=== PATIENT | female | born 1960 | race Caucasian/White ===

== ENCOUNTER → 2019-11-26 13:26 | Outpatient (CLI) | payer OTHER, SELFPAY ==
--- NOTE | ~2019-11-26 | CT_ITS ---
EXAMINATION: CT abdomen pelvis w con DATE: 11/26/2019 13:57 INDICATION: Generalized abdominal pain. TECHNIQUE: Computed tomography (CT) of the abdomen and pelvis was performed with 100 mL Omnipaque 350 intravenous contrast. Automated exposure control and iterative reconstruction technique were employe d. The dose-length product was 366.72 mGy-cm. COMPARISON: CT abdomen and pelvis 05/02/2012, abdomen MRI 03/28/2012 FINDINGS: The visualized portions of the lung bases demonstrate mild atelectasis. There is a 3 mm nod ule in left lower lobe, likely benign. No pleural effusion. The heart size is normal. No pericardial effusion. There is a 5.8 x 2.4 cm lobular mass at the posterior margin of the right hepatic lobe nicanor uring soft tissue attenuation without change in size and was nonenhancing on the prior MRI, consisten t with a proteinaceous/hemorrhagic cyst. There is a 5.0 x 4.0 cm mass at the lateral aspect of the le ft hepatic lobe measuring soft tissue attenuation without change in size that was nonenhancing on the prior MRI, consistent with a proteinaceous/hemorrhagic cyst. The gallbladder, spleen, pancreas, adre nal glands, and kidneys are normal. There is diverticulosis of the colon without evidence of divertic ulitis. There are no dilated loops of bowel. The appendix is normal. There is a supraumbilical ventra l hernia containing fat. There are no pathologically enlarged lymph nodes. There is trace pelvic asci dannielle. There is mild lumbar spondylosis. IMPRESSION: 1. Supraumbilical ventral hernia containing fat. Reviewed, dictated and finalized at location A.
[2019-11-26 13:47] LABS: Estimated Glomerular Filt Rate > 60
== END ==
PROVIDERS: PCP Family Medicine; Visit Provider Family Medicine
DX: R10.9 Unspecified abdominal pain (principal); K43.9 Ventral hernia without obstruction or gangrene
CPT/HCPCS: 36415; 74177; Q9967

== ENCOUNTER → 2020-03-05 15:18 | Outpatient (CLI) | payer OTHER, SELFPAY ==
--- NOTE | ~2020-03-05 | MM_ITS ---
EXAMINATION: MM screening [facility] BI w mary HISTORY: Screening TECHNIQUE: Craniocaudal and mediolateral oblique 3-D tomosynthesis images were obtained and synthetic 2-D images were generated. CAD analysis was submitted and interpreted. COMPARISON: Comparison to multiple prior studies sequentially, with oldest reviewed study dated Naeem rison to multiple prior studies sequentially, with oldest reviewed study dated 03/28/2013. . BREAST PARENCHYMAL COMPOSITION: There are scattered areas of fibroglandular density. FINDINGS: There is no evidence of suspicious mass, calcification, or architectural distortion to sugg est malignancy in either breast. There has been no suspicious interval change. IMPRESSION: 1. No mammographic evidence of malignancy. 2. Recommend routine screening mammography in one year. BI-RADS Category 1: Negative Reviewed, dictated and finalized at location A.
== END ==
PROVIDERS: PCP Family Medicine; Visit Provider Obstetrics & Gynecology
DX: Z12.31 Encounter for screening mammogram for malignant neoplasm of breast (principal)
CPT/HCPCS: 77063; 77067

== ENCOUNTER → 2021-04-09 11:14 | Outpatient (CLI) | payer OTHER, SELFPAY ==
--- NOTE | ~2021-04-09 | MM_ITS ---
EXAMINATION: MM screening [facility] BI w mary HISTORY: Screening mammogram TECHNIQUE: Craniocaudal and mediolateral oblique 3-D tomosynthesis images were obtained and synthetic 2-D images were generated. CAD analysis was submitted and interpreted. COMPARISON: 03/05/2020, 02/12/2019, 10/10/2017 BREAST PARENCHYMAL COMPOSITION: There are scattered areas of fibroglandular density. FINDINGS: A stable asymmetry is present in the middle third of the inner left breast on the craniocau phillip view. There is no evidence of suspicious mass, calcification, or architectural distortion to sugg est malignancy in either breast. There has been no suspicious interval change. IMPRESSION: 1. No mammographic evidence of malignancy. 2. Recommend routine screening mammography in one year. BI-RADS Category 2: Benign finding(s). Reviewed, dictated and finalized at location A. TEGIC COMMUNICATIONS SPECIALIST
== END ==
PROVIDERS: Visit Provider Obstetrics & Gynecology
DX: Z12.31 Encounter for screening mammogram for malignant neoplasm of breast (principal)
CPT/HCPCS: 77063; 77067

== ENCOUNTER 2021-06-03 00:13 | Day surgery (SDC) | payer BC, SELFPAY ==
--- NOTE | 2021-05-28 15:36 | PM.SD2 ---
Same Day Admit/Disch: HPI History of Present Illness Chief complaint: ventral hernia Narrative: Natacha Renteria is a 60 year old female Who has noticed a bulge just above her umbilicus for over a year. Initially it was asymptomatic but over time has started to become uncomfortable. It is worse with activity particularly working out. She had a CT scan of the abdomen and pelvis which I have reviewed. This shows a supraumbilical ventral hernia containing fat. She was seen in the office and is taken to surgery now for repair. [facility] Past Medical History Medical History Anxiety Surgical History Surgical History History of hemorrhoidectomy History of left knee surgery History of lumpectomy of left breast Family History Family History Other No pertinent family history Social History Social History (Updated 06/03/21 @ 09:15 by Roney Connolly MD) Years smoked: 1 Smoking status: Former smoker Tobacco type: cigarettes Alcohol intake: current Drinks per week: 3 Alcohol use details: socially Substance use: never Substance use type: does not use Living arrangements: alone Additional occupation/education comments: Eye Specialist Spiritual care concerns: No Same Day Admit/Disch: Med Pre-admit Medications Home Medications Medication Instructions Recorded Confirmed Type escitalopram oxalate 10 mg tablet 10 mg PO DAILY 03/31/21 06/03/21 History loratadine 10 mg tablet 10 mg PO DAILY 04/08/21 06/03/21 History omeprazole 20 mg tablet,delayed 20 mg PO DAILY 04/08/21 06/03/21 History release estradiol [Estrace] 1 applic VAGINAL 2XW 05/31/21 06/03/21 History multivitamin 1 tablet PO DAILY 05/31/21 06/03/21 History ketorolac 10 mg PO Q6H 4 Days #16 tablet 06/03/21 Rx oxycodone-acetaminophen 0.5 - 1 tablet PO Q6H PRN #5 tablet 06/03/21 Rx Exam Const: General: comfortable, no acute distress, alert and awake HENMT: Head: normocephalic and atraumatic Mouth: Yes Normal oral and palatal mucosa present Eyes: Conjunctivae: conjunctivae normal Pupils: Equal, round and reactive pupils present EOM: EOMs intact bilaterally Neck: Neck: normal visual inspection, no lymphadenopathy and nontender Resp: Effort & Inspection: normal respiratory effort Auscultation: clear to auscultation bilaterally Cardio: Rate: regular rate Rhythm: regular rhythm Heart sounds: no gallops, no murmurs and no rubs GI: Inspection: non-distended, no scars and visible herniation ( Slight skin elevation noted) GI Palp: Yes Soft to palpation, Yes Tenderness to palpation present (GI) ( at hernia), No Hepatomegaly present, No Splenomegaly present and Yes Hernia present ( primary ventral hernia 3 cm cephalad to the umbilicus) Auscultation: normal bowel sounds Skin: Lesions: no lesions Rashes: no rashes Neuro: General: no focal motor deficits and CN's II-XI intact bilaterally Cranial nerves: Yes Equal, round and reactive pupils present, Yes Bilaterally intact EOM present, Yes facial symmetry and Yes Midline tongue present Speech: normal speech Motor exam (neuro): 5/5 motor strength present throughout and Motor abnormalities not present Extrem: General: no clubbing, cyanosis or edema and edema Psych: Affect: normal affect Thought process: Normal thought process present Insight: Good insight present (Psych) DS: Summary Time Spent with Patient Time attestation: Total time spent providing and/or coordinating discharge services: DS: Admitting Diagnosis Discharge Date June 03, 2021 Admitting Diagnosis supraumbilical primary ventral hernia-plan to repair as an outpatient under local anesthesia with IV sedation. Mesh may be needed. Procedure risks and benefits have been explained. All questions were answered. DS: Discharge Diagnosis Discharge Diagnos
[2021-05-31 11:43] VITALS: BMI 24.7
--- NOTE | 2021-05-31 11:56 | PC.NURSE ---
Report to the Outpatient Waiting Room, entrance under the green pavilion located off [facility], at time 0830 on date 06/03/21. OR Time: 1030. - You will be asked a series of questions to screen for COVID 19 for your protection. - A mask is required within the hospital. - No visitors are allowed at this time. Preoperative COVID Testing Requirements: No COVID Test needed if: (proof is required; if not received patient will have Rapid Test prior to entry) - Patient has received COVID Vaccine at least 14 days prior to procedure date or - Patient has positive COVID test result within last 90 days of surgery date. COVID Test needed if above criteria is not met Patients may have clear liquids (water, carbonated beverages, clear teas, apple juice) until 3 hours prior to surgery with a maximum of 20 ounces. - No food from midnight until time of surgery Take the following medications with a SIP of water the morning of surgery: ESCITALOPRAM Medications to discontinue per physician: VITAMINS/SUPPLEMENTS Date to take last dose: TODAY Please no make-up, nail yi, hairspray, perfume, deodorant, or body powder the day of surgery. No jewelry (including any body piercings) or valuables the day of surgery, leave them at home. Please take a shower or bath the night before, or the morning of, surgery with an antibacterial soap. Wear comfortable, loose fitting clothing. HIBICLENS SHOWER - Jewelry must be removed prior to entering the operating room. Rings and piercings that are not removed may be cut off. - The hospital will not accept responsibility for valuables. - Please leave all valuables, including medications, at home the day of surgery. If you are going home after surgery, a licensed crude oil driver must drive you home. - NO public transportation without another adult. - We recommend that an adult stay with you for 24 hours following discharge. - We also recommend that you do not drive, make important decision, drink alcoholic beverages, or take any drugs that were not prescribed by your health care provider for at least 24 hours after your discharge time. Follow any additional instructions given to you from your surgeon. Telephone instructions given to ANNA VÁSQUEZ and asked if any additional questions and then verbalized understanding. Patient advised to call surgeon office or pre surgery nurse liaison [phone] if any additional questions.
[2021-06-03] MEDS: ACETAMINOPHEN 500 MG TABLET 1000 MG PO (08:51)
[2021-06-03] MEDS: LACTATED RINGERS 1,000 ML 30 ML IV CONT (09:09)
[2021-06-03] MEDS: KETOROLAC 15 MG/ML VIAL (*BKC) IV PUSH (09:10)
--- NOTE | 2021-06-03 09:14 | P.PNAN_ITS ---
Anes - Initial Pre Proc Eval Procedure: Operation Date: 06/03/21 10:30 Proposed Procedures p Repair of Periumbilical Ventral Hernia with Possible Mesh - Haris Gabriel MD Date/Time: 06/03/21 09:14 Surgeon: Haris Gabriel MD Pre Op Diagnosis: ventral hernia Patient Data Age: 60 Gender: F Height: 1.6 m Weight: 62.2 kg Allergies Allergy/AdvReac Type Severity Reaction Status Date / Time codeine AdvReac Mild Dizziness Verified 06/03/21 08:49 Home Medications Medication Instructions Recorded Confirmed Type escitalopram oxalate 10 mg tablet 10 mg PO DAILY 03/31/21 06/03/21 History loratadine 10 mg tablet 10 mg PO DAILY 04/08/21 06/03/21 History omeprazole 20 mg tablet,delayed 20 mg PO DAILY 04/08/21 06/03/21 History release estradiol [Estrace] 1 applic VAGINAL 2XW 05/31/21 06/03/21 History multivitamin 1 tablet PO DAILY 05/31/21 06/03/21 History Patient hx anesthesia problems: none Family hx anesthesia problems: none Results Review: All pre-operative results and documents have been reviewed as part of the pre-operative evaluation. 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 Informed Consent: The patient's anesthetic plan and its attendant risks and benefits were discussed with the patient/family/POA. Questions were solicited and answers provided to the satisfaction of the patient/family/POA.
[2021-06-03 09:15] VITALS: BP 127/66; PULSE 68; RESP 16; TEMP 36.8; O2SAT 98
--- NOTE | 2021-06-03 10:54 | WPDHPUPDATE1 ---
History and Physical Update Update Date/Time: 06/03/21 10:54 History and Physical has been reviewed, including an updated exam of the patient. There are NO changes in the patient's condition. Risks, benefits, and alternatives have been discussed and questions answered. Patient agrees to proceed with procedure.
[2021-06-03] MEDS: ceFAZolin 2 GM/D5W 50 ML 2 GM/50 ML BAG IVPB (11:01)
[2021-06-03] MEDS: BUPIVACAINE/EPINEPHRINE 0.5% 10 ML VIAL 24 ML INFILTRATE (11:35)
[2021-06-03 11:50] VITALS: BP 100/51; PULSE 60; RESP 12; O2SAT 99
--- NOTE | 2021-06-03 11:55 | W.PM.PROC2 ---
Procedure Note - Detailed Date of Procedure 06/03/21 Pre-op Diagnosis Primary ventral hernia Post-op Diagnosis same Procedure Performed Repair primary ventral hernia Surgeon Haris Gabriel MD Screener Perfumer Jordyn ESPINOZAA Anesthesia MAC and local (0.5% Marcaine with epinephrine) Indications Patient has a supraumbilical bulge which has been painful. By CT scan as well as exam, this is a supraumbilical primary ventral hernia. She is taken to surgery now for repair possibly with mesh. Findings Although a sizable amount of chronically herniated properitoneal fat was protruding through the defect, the defect itself was slit like and was 5 mm by 2 mm. It was closed primarily with suture. Description of Procedure Patient was checked in the preoperative holding area. The proposed incision was marked on the skin. She was then taken to surgery and IV sedation was administered. The abdomen is prepped and draped. Local anesthesia was infiltrated over the area of the anticipated incision and in the subcutaneous tissues. Incision was made dissection through the subcutaneous was carried out. The hernia sac was noted. It was dissected from the subcutaneous. It was good size, about the size of a ping-pong ball. It was dissected free circumferentially and then dissected down to its neck. Additional local was infiltrated into the neck of the hernia and in the fascia around the hernia defect. The herniated contents were then amputated at the neck of the hernia. This fatty tissue was discarded. I then further dissected the subcutaneous around the hernia defect until the defect itself was easily seen and well delineated. Its size was as noted above. The defect was closed with a cryava-vo-bxduy mattress suture of 0 Ethibond. Additional local was infiltrated into the fascia all around the hernia defect. We then closed the wound in layers. The deep layer of 3-0 Vicryl were placed. Subcuticular interrupted 4 0 Vicryl skin suture were then placed. The wound was closed finally with a running 4-0 Monocryl skin suture. The wound was dressed with Exofin surgical adhesive. Patient was awakened and taken to outpatient surgery in good condition. Sponge and needle counts were correct x2. Implants None Estimated Blood Loss -5 Drains No Packing No Pathology none sent Complications No immediate complications Condition stable Disposition same day
[2021-06-03 12:20] VITALS: BP 128/63; PULSE 79; RESP 16; O2SAT 100
[2021-06-03 12:50] VITALS: BP 125/70; PULSE 70; RESP 16; O2SAT 100
[2021-06-03] MEDS: oxyCODONE HCL (*CRX) 5 MG TAB IR PO (12:52)
== END 2021-06-03 13:20 | disposition home or self-care (01) ==
PROVIDERS: PCP Family Medicine; Visit Provider Surgery
PROC: (CPT 49560; principal; 2021-06-03 10:30)
DX: K43.9 Ventral hernia without obstruction or gangrene (principal); F41.9 Anxiety disorder, unspecified; Z87.891 Personal history of nicotine dependence
CPT/HCPCS: 49560; A9270; J0690; J1885; J2250; J2704; J3010; J7120

== ENCOUNTER → 2022-06-03 14:35 | Outpatient (CLI) | payer BC, SELFPAY ==
--- NOTE | ~2022-06-03 | MM_ITS ---
EXAMINATION: MM screening [facility] BI w mary HISTORY: Screening TECHNIQUE: Craniocaudal and mediolateral oblique 3-D tomosynthesis images were obtained and synthetic 2-D images were generated. CAD analysis was submitted and interpreted. COMPARISON: Comparison to multiple prior studies sequentially, with oldest reviewed study dated 06/2014. BREAST PARENCHYMAL COMPOSITION: There are scattered areas of fibroglandular density. FINDINGS: There is no evidence of suspicious mass, calcification, or architectural distortion to sugg est malignancy in either breast. There has been no suspicious interval change. IMPRESSION: 1. No mammographic evidence of malignancy. 2. Recommend routine screening mammography in one year. BI-RADS Category 1: Negative Reviewed, dictated and finalized at location A. RACT AGENT
== END ==
PROVIDERS: PCP Family Medicine; Visit Provider Obstetrics & Gynecology
DX: Z12.31 Encounter for screening mammogram for malignant neoplasm of breast (principal)
CPT/HCPCS: 77063; 77067

== ENCOUNTER → 2023-01-13 09:57 | Outpatient (CLI) | payer BC, SELFPAY ==
--- NOTE | ~2023-01-13 | DEXA_ITS ---
Bone Density Report Name: ANNA VÁSQUEZ Age: 62 Sex: Female Ethnicity: White Date of : 1960 Indication: postmenopausal; screening for osteoporosis; hysterectomy; Referring Provider: Lit, Martha Study: Bone densitometry was performed. Exam Date: January 13, 2023 Accession number: [id number] Bone Density: Region BMD T-score Z-score Classification AP Spine (L1-L4) 0.752 -2.7 -1.0 Osteoporosis Femoral Neck (Left) 0.601 -2.2 -0.8 Osteopenia Total Hip (Left) 0.758 -1.5 -0.4 Osteopenia Femoral Neck (Right) 0.626 -2.0 -0.6 Osteopenia Total Hip (Right) 0.731 -1.7 -0.6 Osteopenia Total Hip Mean 0.745 -1.6 -0.5 Osteopenia World Health Organization criteria for BMD impression classify patients as: Normal (T-score at or above -1.0), Osteopenia (T-score between -1.0 and -2.5), or Osteoporosis (T-score at or below -2.5). 10-year Fracture Risk: FRAX not reported because: Some T-score for Spine Total or Hip Total or Femoral Neck at or below -2.5 Clinical Information Provided by Patient: Has used the following medications: Vitamin D Has the following medical conditions: Hysterectomy Patient maximum height was 63.3 Menopause Age: 37 Does not regularly consume dairy products Drinks caffeinated beverages Onset of menses at age 11 Number of children 3 Impression: The patient has osteoporosis, based on the Total Spine T-score. Discussion: INCREASED RISK OF FRACTURE. BONE DENSITY IS UNDESIRABLY LOW AT ONE OR MORE SKELETAL SITES, CONSISTENT WITH POSTMENOPAUSAL OSTEOPOROSIS. This patient's lowest T-score meets the World Health Organization's (WHO) criteria for osteoporosis at one or more sites (T-score -2.5 or below). In untreated patients, the risk of osteoporotic fracture increases approximately two-fold for each 1.0 SD decrease in T-score. Low bone density is not the only risk factor for fracture; also consider factors such as patient's age, frailty or poor health, risk of falling, risk of injury, previous osteoporotic fracture, family history of osteoporosis, cigarette smoking, low body weight, etc. Not everyone with low bone mineral density has osteoporosis; osteomalacia and other metabolic bone disorders should also be considered. Patients who have osteoporosis should be evaluated for specific diseases and conditions (secondary causes) that may cause or contribute to bone loss. The [place] Association of Clinical Endocrinologists (AACE) and National Osteoporosis Foundation (NOF) recommend pharmacologic intervention for all postmenopausal women whose T-score is in this range. The patient should follow a healthful lifestyle (good nutrition with adequate calcium and vitamin D, and appropriate weight-bearing exercise). Follow-Up: Consider a repeat BMD and Vertebral Fracture Assessment (VFA) exam in 2 years or sooner
== END ==
PROVIDERS: PCP Nurse Practitioner Family; Visit Provider Nurse Practitioner Family
DX: Z78.0 Asymptomatic menopausal state (principal); M81.0 Age-related osteoporosis without current pathological fracture; M85.89 Other specified disorders of bone density and structure, multiple sites
CPT/HCPCS: 77080

== ENCOUNTER 2023-04-25 13:36 | Outpatient (CLI) | payer BC, SELFPAY ==
--- NOTE | ~2023-04-25 | XR_ITS ---
EXAMINATION: XR lg joint inject/asp w image DATE: 04/25/2023 14:33 INDICATION: Right sided frozen shoulder TECHNIQUE: A time-out was performed to verify the patient's name, date of , and procedure to b e performed. The procedure including the risks, benefits, and alternatives was discussed with the pat ient. Risks discussed included bleeding and infection. The patient understood the risks and agreed to proceed. The skin overlying the rotator cuff interval of the right glenohumeral joint was prepped a nd draped in usual sterile fashion. Anesthetic was administered with 1% lidocaine subcutaneously. A 22 G needle was advanced under fluoroscopic guidance into the joint. Injection of 1 mL of Omnipaque 240 confirmed intra-articular position of the needle. Subsequently, injectate consisting of 5 mm a 4:1 mixture of 1% lidocaine: 80 mg/mL Depo-Medrol for a total dosage of 80 mg Depo-Medrol was instill ed. Washout of contrast was seen confirming intra-articular administration. The needle was removed an d the entry site was cleaned and dressed. There were no immediate complications. Fluoroscopy exposur e time was 0.1 minutes. The total number of images was 2. FINDINGS: Real-time fluoroscopy demonstrates the needle in the right glenohumeral joint. Patient's pa in prior to procedure:10/29. Patient's pain following the procedure: 08/29. IMPRESSION: 1. Successful right glenohumeral joint injection of local anesthetic and steroid with decrease in the patient's presenting pain. Reviewed, dictated and finalized at location A. ER MAKER IMPRESSION: 1. Successful right glenohumeral joint injection of local anesthetic and steroi d with decrease in the patient's presenting pain.
== END 2023-04-25 13:37 | disposition home or self-care (01) ==
PROVIDERS: PCP Family Medicine; Visit Provider Orthopaedic Surgery
DX: M75.01 Adhesive capsulitis of right shoulder (principal)
CPT/HCPCS: 20610; 77002; J1040; Q9967

== ENCOUNTER → 2023-06-14 15:34 | Outpatient (CLI) | payer BC, SELFPAY ==
--- NOTE | ~2023-06-14 | MM_ITS ---
EXAMINATION: MM screening [facility] BI w mary HISTORY: Screening mammogram TECHNIQUE: Craniocaudal and mediolateral oblique 3-D tomosynthesis images were obtained and synthetic 2-D images were generated. CAD analysis was submitted and interpreted. COMPARISON: 06/03/2022, 04/09/2021, 03/05/2020 BREAST PARENCHYMAL COMPOSITION: There are scattered areas of fibroglandular density. FINDINGS: No suspicious mass, calcification, or architectural distortion are identified in either jes ast to suggest malignancy. There has been no suspicious interval change. IMPRESSION: 1. No mammographic evidence of malignancy. 2. Recommend routine screening mammography in one year. BI-RADS Category 1: Negative Reviewed, dictated and finalized at location A. GLUER AND SLICER
== END ==
PROVIDERS: PCP Obstetrics & Gynecology; Visit Provider Obstetrics & Gynecology
DX: Z12.31 Encounter for screening mammogram for malignant neoplasm of breast (principal)
CPT/HCPCS: 77063; 77067

== ENCOUNTER → 2023-07-17 07:08 | Outpatient (CLI) | payer BC, SELFPAY ==
--- NOTE | ~2023-07-17 | MR_ITS ---
MRI of the right shoulder Technique: Axial proton-density fat-sat images, coronal proton density fat-sat and T2 fat-sat images, and sagittal T1-weighted and T2 fat-sat images were acquired. Clinical History: Pain Findings: There is moderate AC joint degenerative change, bony productive change at the distal clavic le. Cortical clavicular, coracoacromial, and coracohumeral ligaments are intact. There is moderate to advanced supraspinatus and infraspinatus tendinosis, without partial or full-thi ckness tear. Subscapularis tendon demonstrates moderate tendinosis, without tear. Tendon of long head of the biceps is intact, with probable intra-articular tendinosis. There is superior labral tear, probably extending to the anterosuperior and posterior superior portio ns. Inferior glenohumeral ligament is intact. There are small glenohumeral joint effusion. There is mild chondral malacia the medial aspect of the humeral head. There is fluid in the subacromial/subdeltoid bursa, small amount. There is fluid distention of the subcoracoid bursa. No muscle atrophy or edema s een. Impression: SLAP tear of the labrum. Extensive rotator cuff tendinosis without partial or full-thickness tear. Subcoracoid bursitis and mild subacromial/subdeltoid bursitis. Moderate AC joint degenerative change. Reviewed, dictated and finalized at [facility]. TH INFORMATICS INSTRUCTOR Impression: SLAP tear of the labrum. Extensive rotator cuff tendinosis without partial or full-thickness tear. Subcoracoid bursitis and mild subacromial/subdeltoid bursitis. Moderate AC joint degenerative change.
== END ==
PROVIDERS: PCP Orthopaedic Surgery; Visit Provider Orthopaedic Surgery
DX: S43.431A Superior glenoid labrum lesion of right shoulder, initial encounter (principal); X58.XXXA Exposure to other specified factors, initial encounter; M19.011 Primary osteoarthritis, right shoulder
CPT/HCPCS: 73221

== ENCOUNTER 2024-06-19 14:50 | Outpatient (CLI) | payer OTHER, SELFPAY ==
--- NOTE | ~2024-06-19 | MM_ITS ---
EXAMINATION: MM screening [facility] BI w mary HISTORY: Screening TECHNIQUE: Craniocaudal and mediolateral oblique 3-D tomosynthesis images were obtained and synthetic 2-D images were generated. CAD analysis was submitted and interpreted. COMPARISON: Comparison to multiple prior studies sequentially, with oldest reviewed study dated 10/10. BREAST PARENCHYMAL COMPOSITION: Not dense: There are scattered areas of fibroglandular density. FINDINGS: There is no evidence of suspicious mass, calcification, or architectural distortion to sugg est malignancy in either breast. There has been no suspicious interval change. IMPRESSION: 1. No mammographic evidence of malignancy. 2. Recommend routine screening mammography in one year. BI-RADS Category 1: Negative Reviewed, dictated and finalized at location A. TESTER
== END 2024-06-19 14:51 | disposition home or self-care (01) ==
LOC: MICIMG 14:52
PROVIDERS: PCP Internal Medicine; Visit Provider Obstetrics & Gynecology
DX: Z12.31 Encounter for screening mammogram for malignant neoplasm of breast (principal)
CPT/HCPCS: 77063; 77067

== ENCOUNTER 2025-03-17 12:52 | Outpatient (CLI) | payer MEDICARE, OTHER, SELFPAY ==
--- NOTE | ~2025-03-17 | DEXA_ITS ---
Bone Density Report Name: ANNA VÁSQUEZ Age: 64 Sex: Female Ethnicity: White Date of : 1960 Indication: postmenopausal osteoporosis; hysterectomy; Referring Provider: Shar, Zane Study: Bone densitometry was performed. Exam Date: March 17, 2025 Accession number: [id number] Bone Density: Region BMD T-score Z-score Classification AP Spine(L1-L4) 0.753 -2.7 -0.9 Osteoporosis Femoral Neck (Left) 0.582 -2.4 -0.9 Osteopenia Total Hip (Left) 0.707 -1.9 -0.7 Osteopenia Femoral Neck (Right) 0.581 -2.4 -0.9 Osteopenia Total Hip (Right) 0.655 -2.3 -1.1 Osteopenia Total Hip Mean 0.681 -2.1 -0.9 Osteopenia World Health Organization criteria for BMD impression classify patients as: Normal (T-score at or above -1.0), Osteopenia (T-score between -1.0 and -2.5), or Osteoporosis (T-score at or below -2.5). 10-year Fracture Risk: FRAX not reported because: Some T-score for Spine Total or Hip Total or Femoral Neck at or below -2.5 Previous Exams: -- Region Exam Age BMD T-score BMD Change BMD Change Date g/cm2 vs Baseline vs Previous -- AP Spine (L1-L4) 03/17/2025 64 0.753 -2.7 0.1% 0.1% 01/13/2023 62 0.752 -2.7 Total Hip(Left) 03/17/2025 64 0.707 -1.9 -6.7%* -6.7%* 01/13/2023 62 0.758 -1.5 Total Hip(Right) 03/17/2025 64 0.655 -2.3 -10.3%* -10.3%* 01/13/2023 62 0.731 -1.7 -- *Denotes significance at 95% confidence level, LSC for AP Spine = 0.022 g/cm2, LSC for Total Hip = 0.027 g/cm2 Clinical Information Provided by Patient: Has the following medical conditions: Hysterectomy Patient maximum height was 64 Menopause Age: 37 No regular weight bearing exercise Does not regularly consume dairy products Drinks caffeinated beverages Onset of menses at age 12 Number of children 3 Impression: The patient has osteoporosis, based on the Total Spine T-score. The BMD for the Total Hip(Left) decreased, changing by -6.7% since the last DXA exam. The BMD for the Total Hip(Right) decreased, changing by -10.3% since the last DXA exam. Discussion: INCREASED RISK OF FRACTURE. BONE DENSITY IS UNDESIRABLY LOW AT ONE OR MORE SKELETAL SITES, CONSISTENT WITH POSTMENOPAUSAL OSTEOPOROSIS. This patient's lowest T-score meets the World Health Organization's (WHO) criteria for osteoporosis at one or more sites (T-score -2.5 or below). In untreated patients, the risk of osteoporotic fracture increases approximately two-fold for each 1.0 SD decrease in T-score. Low bone density is not the only risk factor for fracture; also consider factors such as patient's age, frailty or poor health, risk of falling, risk of injury, previous osteoporotic fracture, family history of osteoporosis, cigarette smoking, low body weight, etc. Not everyone with low bone mineral density has osteoporosis; osteomalacia and other metabolic bone disorders should also be considered. Patients who have osteoporosis should be evaluated for specific diseases and conditions (secondary causes) that may cause or contribute to bone loss. The [place] [employer] (AACE) and National Osteoporosis Foundation (NOF) recommend pharmacologic intervention for all postmenopausal women whose T-score is in this range. The patient should follow a healthful lifestyle (good nutrition with adequate calcium and vitamin D, and appropriate weight-bearing exercise). Follow-Up: Consider a repeat BMD and Vertebral Fracture Assessment (VFA) exam in 2 years or sooner if medically necessary, to reassess this patient's status. Reported by: DEVORA on 03/17/2025 1:12:00 PM. Reviewed, dictated and finalized at location A.
== END 2025-03-17 12:53 | disposition home or self-care (01) ==
LOC: MICIMG 12:54
PROVIDERS: PCP Internal Medicine; Visit Provider Internal Medicine
DX: M81.0 Age-related osteoporosis without current pathological fracture (principal); M85.89 Other specified disorders of bone density and structure, multiple sites; Z78.0 Asymptomatic menopausal state
CPT/HCPCS: 77080